=== PATIENT | male | born 1955 | race Caucasian/White ===

== ENCOUNTER 2018-06-28 09:18 | Day surgery (SDC) | payer OTHER ==
[2018-06-27 15:03] VITALS: BMI 33.5
[2018-06-28] MEDS ORDERED: Glycopyrrolate 0.2 MG/ML 5 ML SYRINGE ONE (10:25)
[2018-06-28] MEDS ORDERED: Ondansetron HCl/PF 4 MG/2 ML Vial ONE (10:25)
[2018-06-28] MEDS ORDERED: Ketorolac Tromethamine 30 MG/ML VIAL ONE (10:25)
[2018-06-28] MEDS ORDERED: Lidocaine 1% PF 5 ML VIAL ONE (10:25)
[2018-06-28] MEDS ORDERED: PROPOFOL 200 MG/20 ML VIAL ONE (10:25)
[2018-06-28] MEDS ORDERED: CEFAZOLIN/Water 2 GM/20 ML SYRINGE ONE (10:35)
[2018-06-28 10:42] LABS: #Basophils 0.1 thou/uL (0.0-0.2); #Eosinphils 0.8 thou/uL (0.0-0.7); #Lymphocytes 2.6 thou/uL (1.20-3.40); #Monocytes 0.5 thou/uL (0.11-0.59); #Neutrophils 3.9 thou/uL (1.40-6.50); %Basophils 0.9 % (0.0-1.0); %Eosinophils 10.3 % (0.0-10.0); %Monocytes 6.6 % (0.0-10.0); %Neutrophils 49.2 % (42.0-75.0); Hemoglobin 13.7 g/dL (14.0-18.0); Mean Corpuscular HGB CONC 33.5 g/dL (32.0-36.0); Mean Corpuscular Hemoglobin 29.4 pg (27.0-31.0); Mean Corpuscular Volume 87.9 fL (78.0-98.0); Mean Platelet Volume 5.6 fL (7.4-10.4); Platelet Count 302 thou/uL (130-400); RBC Distribution Width 12.5 % (11.5-14.5); Red Blood Cell (RBC) Count 4.65 mill/uL (4.70-6.10); White Blood Cell (WBC) Count 7.9 thou/uL (4.8-10.8)
[2018-06-28 11:00] LABS: Anion Gap 14 mmol/L (10-20); BUN (Urea Nitrogen) 16 mg/dL (8.4-25.7); Calc. Creatinine Clearance 160 mL/min (70-130); Calcium 9.6 mg/dL (7.8-10.44); Carbon Dioxide 23 mmol/L (23-31); Chloride 106 mmol/L (98-107); Estimated GFR-MDRD Greater than 90; Glucose 98 mg/dL (80-115); Potassium 4.5 mmol/L (3.5-5.1); Sodium 138 mmol/L (136-145)
[2018-06-28] MEDS ORDERED: Fentanyl 100 MCG/2 ML VIAL ONE ×4 (11:07→12:02)
[2018-06-28] MEDS ORDERED: Midazolam HCl 2 mg/2 ml Vial ONE ×2 (11:07→11:37)
[2018-06-28] MEDS ORDERED: Bupivacaine/Epinephrine 0.25% 30 ML VIAL ONE (12:00)
[2018-06-28] MEDS ORDERED: Bupivacaine HCl 0.5%/Epinephrine 1:200,000/PF 30 ml Vial ONE (13:03)
[2018-06-28] MEDS ORDERED: Rocuronium Bromide 50 MG/5 ML VIAL ONE (13:16)
--- NOTE | 2018-06-28 19:11 | OP ---
DATE OF OPERATION: 06/28/2018 PREOPERATIVE DIAGNOSES: 1. Rotator cuff tear of the left shoulder. 2. Tear of the posterior superior labrum of the left shoulder. 3. Left acromioclavicular arthritis. POSTOPERATIVE DIAGNOSES: 1. Rotator cuff tear of the left shoulder. 2. Tear of the posterior superior labrum of the left shoulder. 3. Left acromioclavicular arthritis. PROCEDURE PERFORMED: Arthroscopy of the left shoulder with subacromial decompression, rotator cuff r epair, repair of the posterior superior labrum and excision of the left distal clavicle. SURGEON: Mati Paulino M.D. ANESTHESIA: General. TECHNIQUE: The patient was given preoperative IV antibiotics, taken to the operating room, placed in supine position. Satisfactory general anesthesia was performed. The patient was placed in the righ t lateral decubitus position. All bony prominences were well-padded. The left upper extremity was p laced in 15 pounds of traction. The left shoulder and upper extremity was sterilely prepped and drap ed in usual fashion. The shoulder was scoped through the usual anterior and posterior portals as wel l as a lateral and superolateral portal. Upon entering the shoulder joint, the patient had some mendez r tearing of the labrum anteriorly, but the labrum was intact. The frayed areas were shaved. There was tearing of the labrum from the superior and posterior aspect of the labrum. This was repaired us ing #2 FiberWire and Arthrex 2.9 anchors. Two anchors were placed in the posterior superior labrum, which provided excellent repair and fixation. The subacromial space was entered. There was signific ant amount of bursitis, which was excised. The undersurface of the acromion was cleaned off with a s haver and a 90-degree ArthroWand and a high-speed bur was used to smooth down and thin down the under surface of the acromion. The acromioclavicular joint was identified and through the anterior approac h, the distal clavicle was excised with the bur. There was a tear involving the entire supraspinatus tendon, which was retracted approximately 1 to 1.5 cm, but was easily mobilized and it was repaired using 4.75 anchors, two of those were used on the medial row along with FiberTape and then two additi onal PushLock 4.75 anchors in the lateral row. This provided a good repair and stability for the rep air of the rotator cuff. During the procedure, all the debris was irrigated out of the shoulder join t. The wounds were then closed using 3-0 Rapide. Upper extremity was taken out of traction. The pa tient was awakened, extubated, and transferred to the recovery room in stable condition. ESTIMATED BLOOD LOSS: Minimal. COMPLICATIONS: None. DISCHARGE MEDICATIONS: Tylenol #4 one every 6 hours as needed for pain, #50 with 1 refill. The patient was placed in a shoulder immobilizer, which he may remove to work on range of motion of t he left elbow, forearm, wrist and hand, but avoid any active range of motion of the left shoulder. Angelina lynn in my office in 1 week.
--- NOTE | 2018-07-01 17:40 | EKG ---
Test Reason : PREOP Blood Pressure : / mmHG Vent. Rate : 064 BPM Atrial Rate : 064 BPM P-R Int : 162 ms QRS Dur : 090 ms QT Int : 384 ms P-R-T Axes : 059 015 044 degrees QTc Int : 396 ms Normal sinus rhythm Normal ECG No previous ECGs available Confirmed by ZAC GANT (2) on 07/01/2018 5:40:08 PM Referred By: ANA LAURA Confirmed By:ZAC GANT
== END 2018-06-28 17:06 | disposition home or self-care (01) ==
LOC: SDC 09:18
PROVIDERS: ATTEND Orthopaedic Surgery
PROC: 0LQ24ZZ Repair Left Shoulder Tendon, Percutaneous Endoscopic Approach (ICD-10-PCS; principal; 2018-06-28)
PROC: 0RNK4ZZ Release Left Shoulder Joint, Percutaneous Endoscopic Approach (ICD-10-PCS; principal; 2018-06-28)
PROC: 0MM24ZZ Reattachment of Left Shoulder Bursa and Ligament, Percutaneous Endoscopic Approach (ICD-10-PCS; principal; 2018-06-28)
PROC: 0PBB4ZZ Excision of Left Clavicle, Percutaneous Endoscopic Approach (ICD-10-PCS; principal; 2018-06-28)
DX: M75.102 Unspecified rotator cuff tear or rupture of left shoulder, not specified as traumatic (principal); S43.432A Superior glenoid labrum lesion of left shoulder, initial encounter; M75.42 Impingement syndrome of left shoulder; M19.012 Primary osteoarthritis, left shoulder; X58.XXXA Exposure to other specified factors, initial encounter; Z79.899 Other long term (current) drug therapy; Z79.82 Long term (current) use of aspirin
CPT/HCPCS: 80048; 85025; 93005; 93010; C1713; J0670; J2250; J3010